=== PATIENT | female | born 1975 | race Caucasian/White ===

== ENCOUNTER → 2021-12-30 08:40 | Outpatient (BNVA) | payer OTHER, SELFPAY | PROVIDERS: PCP Physician Assistant; Visit Provider Student in an Organized Health Care Education/Training Program | DX: I73.00 Raynaud's syndrome without gangrene (principal); M54.2 Cervicalgia; Z13.21 Encounter for screening for nutritional disorder | CPT/HCPCS: 36415; 80053; 81001; 82306; 82550; 82784; 84156; 84165; 84443; 85025; 85597; 85613; 85652; 85730; 86038; 86039; 86140; 86146; 86147; 86160; 86225; 86235; 86334; 86376; 86800; 99202 ==

== ENCOUNTER 2021-12-30 10:06 | Outpatient (REF) | payer OTHER, SELFPAY ==
[2021-12-30 10:43] LABS: MANUAL DIFF FLAG NO
[2021-12-30 11:45] LABS: Basophils Absolute Auto 0.1 X10*3/uL (0.0-0.2); Basophils Percent Auto 0.6 % (0-2); Eosinophils Absolute Auto 0.1 X10*3/uL (0.0-0.4); Eosinophils Percent Auto 0.8 % (0-4); Hematocrit 42.1 % (37.0-47.0); Hemoglobin 13.9 g/dl (12.0-16.0); Imm Gran Abs Auto 0.04 X10*3/uL (0.00-0.03); Imm Gran Pct Auto 0.5 % (0.0-0.4); Lymphocytes Absolute Auto 2.1 X10*3/uL (1.2-4.9); Lymphocytes Percent Auto 24.6 % (20-40); Mean Corpuscular Hemoglobin 29.4 pg (27.0-33.0); Mean Corpuscular Volume 89.2 fL (80.0-98.0); Mean Platelet Volume 10.3 fL (9.4-12.3); Monocytes Absolute Auto 0.6 X10*3/uL (0.1-1.2); Monocytes Percent Auto 7.3 % (2-11); Neutrophils Absolute Auto 5.6 x10*3/uL (2.0-8.3); Neutrophils Percent Auto 66.2 % (45-73); Platelet Count 313 X10*3/uL (160-400); Red Blood Count 4.72 X10*6/uL (4.20-5.50); Red Cell Distribution Width 11.9 % (11.0-16.0); White Blood Count 8.4 X10*3/uL (4.8-10.8)
[2021-12-30 12:11] LABS: Alanine Aminotransferase 7 U/L (0-31); Albumin Level 4.9 g/dL (3.5-5.0); Alkaline Phosphatase 59 U/L (39-117); Anion Gap 16 (12-20); Aspartate Amino Transferase 19 U/L (5-31); Bilirubin Total 0.3 mg/dL (0.0-1.0); Blood Urea Nitrogen 9 mg/dL (9-16); C Reactive Protein 0.43 mg/dL (< or = 0.50); Calcium 10.1 mg/dL (8.4-10.2); Carbon Dioxide 23 mmol/L (22-29); Chloride 102 mmol/L (96-108); Estimated Glomerular Filt Rate > 60; Glucose Random 87 mg/dL (60-115); Potassium 4.3 mmol/L (3.3-5.1); Sodium 137 mmol/L (135-145)
[2021-12-30 12:20] LABS: Erythrocyte Sedimentation Rate 18 MM/HR (0-20)
[2021-12-30 12:33] LABS: Appearance Urine Clear; Color Urine Yellow; Glucose Urine UA Negative (Negative); Leukocyte Esterase Urine Negative (Negative); Nitrite Urine Negative (Negative); Urine Blood Negative (Negative); Urine Ketones Negative (Negative); Urine Protein Negative (Neg-Trace)
[2021-12-30 12:39] LABS: Thyroid Stimulating Hormone 1.05 uIU/mL (0.32-4.0)
[2021-12-30 12:39] LABS: Creatinine Urine 27.01 mg/dL; Total Protein Urine Random < 7 mg/dL (<12)
[2021-12-30 12:40] LABS: Bacteria Urine None Seen (None Seen); Hyaline Casts Urine 0-2 /LPF (0-2); RBC Urine 0-2 /HPF (0-2); WBC Urine 0-5 /HPF (0-5)
[2021-12-31 13:52] LABS: Cardiolipin IgG Ab 2.8 GPL-U/mL; Cardiolipin IgM Ab 2.5 MPL-U/mL
[2021-12-31 21:41] LABS: Prot Elec - Albumin 4.7 g/dL (3.8-4.8); Prot Elec - Alpha1 0.4 g/dL (0.2-0.3); Prot Elec - Alpha2 0.9 g/dL (0.5-0.9); Prot Elec - Beta 1 0.5 g/dL (0.4-0.6); Prot Elec - Beta 2 0.4 g/dL (0.2-0.5); Prot Elec - Gamma 1.2 g/dL (0.8-1.7)
[2022-01-01 11:42] LABS: IgA 258 mg/dL (47-310); IgG 1122 mg/dL (600-1640); IgM 148 mg/dL (50-300)
[2022-01-01 15:16] LABS: Anti Nuclear Antibody Screen NEGATIVE (NEGATIVE)
[2022-01-01 16:47] LABS: Complement C3 155 mg/dL (83-193)
[2022-01-01 17:51] LABS: Thyroid Peroxidase Antibodies 1 IU/mL (<9)
[2022-01-01 22:02] LABS: Anti-Centromere B Antibodies <1.0 NEG AI (<1.0 NEG)
[2022-01-02 05:41] LABS: Beta-2 Glycoprotein IgA <2.0 U/mL (<20.0); Beta-2 Glycoprotein IgG <2.0 U/mL (<20.0); Beta-2 Glycoprotein IgM 2.6 U/mL (<20.0)
[2022-01-02 08:23] LABS: Anti DNA DS Antibody 2 IU/mL; Antibody to SS-A Antigen <1.0 NEG AI (<1.0 NEG); Antibody to SS-B Antigen <1.0 NEG AI (<1.0 NEG); SM/Ribonucleoprotein Ab <1.0 NEG AI (<1.0 NEG); Scleroderma 70 Antibody <1.0 NEG AI (<1.0 NEG); Smith Protein <1.0 NEG AI (<1.0 NEG)
[2022-01-02 21:22] LABS: Thyroglobulin Antibodies <1 IU/mL (< or = 1)
[2022-01-03 13:52] LABS: PTT (LAC) Screen 38 sec (<=40)
[2022-01-03 15:16] LABS: Vitamin D 25-OH, D2 <4 ng/mL; Vitamin D 25-OH, D3 33 ng/mL; Vitamin D 25-OH, Total 33 ng/mL (30-100)
== END 2021-12-30 10:07 | disposition home or self-care (01) ==
LOC: HO.10HDL 10:06
PROVIDERS: Visit Provider Student in an Organized Health Care Education/Training Program
DX: Z13.89 Encounter for screening for other disorder (principal)
CPT/HCPCS: 36415; 80053; 81001; 82306; 82550; 82784; 84156; 84165; 84443; 85025; 85597; 85613; 85652; 85730; 86038; 86039; 86140; 86146; 86147; 86160; 86225; 86235; 86334; 86376; 86800

== ENCOUNTER → 2022-02-04 09:37 | Outpatient (BNVA) | payer OTHER, SELFPAY | PROVIDERS: PCP Physician Assistant; Visit Provider Student in an Organized Health Care Education/Training Program | DX: I73.00 Raynaud's syndrome without gangrene (principal); M54.2 Cervicalgia | CPT/HCPCS: 99212 ==

== ENCOUNTER 2023-02-03 09:11 | Outpatient (AMB) | payer OTHER, SELFPAY ==
--- NOTE | 2023-02-03 09:17 | MHC.OFFVIS ---
Intake Vital Signs 02/03/23 09:20 Height 5 ft 2 in Weight 139 lb 5.314 oz BMI 25.5 BP 116/68 Blood Pressure Location Rt brachial Position Sitting Pulse 96 Pulse Source Pulse Oximeter Temp 97.7 F Pulse Oximetry (%) 98 Intake Visit Reasons: Raynaud's Intake Note: Pt last seen 02/04/22, presents today for 1 year cervicalgia follow up. 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 Accompanied by: Self / Same As Patient Allergies acetaminophen [From Percocet] Allergy (Intermediate, Verified 02/03/23 09:22) Rash oxycodone [From Percocet] Allergy (Intermediate, Verified 02/03/23 09:22) Rash Medication List - Last Reconciled 02/03/23 by Nelson Villalta MD albuterol sulfate 90 mcg/actuation (ProAir HFA) 2 puffs inhalation Q6H PRN cholecalciferol (vitamin D3) 25 mcg PO DAILY clindamycin phosphate 1% 1 appl topical DAILY fluticasone propionate 50 mcg/actuation (Allergy Relief (fluticasone)) 1 spray intranasal DAILY PRN ibuprofen 400 mg PO Q8H PRN HPI HPI Comments History of Present Illness Details 47-year-old female with Raynaud's returns for follow-up. States that the Raynaud's does not bother her. She states that she feels a little bit more stiff compared to last visit. She did not go to physical therapy. States that her neck and back are stiff. Initial history: This is a 46-year-old female with past medical history of diverticulosis, allergic rhinitis, asthma who presents for evaluation of upper neck and back pain. The condition has been ongoing for more than 5 years but she decided to get evaluated for it. She has bilateral neck and upper back pain, usually associated with stiffness, no significant pain. She gets about 10% relief with ibuprofen 400 mg. Which she uses about once a week. Pain is usually worse when she wakes up in the morning. Patient states she generally sleeps well, 7 hours nightly, wakes up refreshed. No other pain. Over the last 5 years she has had her fingers become pale in the cold. This is associated with mild tingling. Currently when she has to reach into the freezer she wears gloves. Her fingers do not change to blue or purple. Never had any ulcers on the fingertips. Fingers feel normal after just a few minutes.she had tingling and pain in her toes for a few days at some point then it self-resolved. She mentions that her father and sister both have goiter but they are not on any treatment for thyroid disease. The family has been in the [place] for over 40 years. Patient denies , photosensitivity, oral or nasal ulcers, sicca symptoms, fevers, alopecia, history of miscarriage. [facility] Medical History Diverticulosis Endometriosis Asthma Allergic rhinitis Family History Mother CHF (congestive heart failure) Father Hypertension Sister Goiter Social History Household Members: Spouse and Family Housing: House Alcohol intake: current Alcohol intake frequency: a few times a week Alcohol type: wine Patient Tobacco Use Status: Never used Tobacco service: No Current occupational status: employed Current occupation: [employer] 2 times a week, also self employed [employer] Review of Systems Const All systems reviewed & are unremarkable except as noted in HPI and below Resp Reports no additional complaints Musc Details: Upper back and neck stiffness Physical Exam Vital Signs: Last Vital Signs Temp 97.7 F 02/03/23 09:20 Pulse 96 02/03/23 09:20 BP 116/68 02/03/23 09:20 Pulse Ox 98 02/03/23 09:20 BMI result Body Mass Index 25.5 Const General: cooperative, healthy appearing, comfortable, no acute distress and well developed Nutritional Appearance: average body habitus and well nourished Orientation/consciousness: patient oriented x3 Limitations: no limitations HEENT Head: Yes normocephalic and Yes atraumatic Mouth: moist mucous membranes Resp Effort & Inspection: normal respiratory effort and able to speak in complete sentences Auscultation: clear to auscultation bilaterally Cardio Rate: regular rate Rhythm: regular rhythm Heart sounds: S1 normal heart sound present and S2 normal heart sound present GI Inspection: No distended Palpation (GI): Soft to palpation and nontender Back/Spine/Pelvis Cervical Spine: cervical ROM normal Skin General skin exam: no rashes or lesions noted Neuro General: patient oriented x3 Extrem Other: No synovitis Normal nailfold capillaroscopy Muscle strength 5/5 proximally in upper lower extremities No fibromyalgia tender points Mildly reduced neck rotation to the left Negative Spurling sign bilaterally General: Yes full ROM Assessment & Plan Assessment & Plan (1) Raynaud phenomenon: Code(s): I73.00 - Raynaud's syndrome without gangrene Qualifiers: Raynaud?s-associated gangrene presence: without gangrene Qualified Code(s): I73.00 - Raynaud's syndrome without gangrene Plan: This is a 47-year-old female with Raynaud's returns for follow-up. Per patient her Raynaud's has not been bothersome recently. She has negative serologies and normal nailfold capillaroscopy. This is likely primary Raynaud's Advised patient on the importance of maintaining core and extremity temperature warmth. We discussed gloves and glove warmers as needed. She is a nonsmoker f/u in 1 year (2) Cervicalgia: Code(s): M54.2 - Cervicalgia Plan: Likely mechanical in nature. Possible OA. There are no radiculopathy signs. Start PT Plan I spent 25 minutes reviewing patient's chart, evaluating patient, ordering diagnostic workup, counseling patient and documenting in the chart Orders: Orders PT Evaluation and Treatment Today M54.2 - Cervicalgia Coding Level of Care Code Est Pt Level 4 (99315) Diagnoses Raynaud's phenomenon without gangrene I73.00 Raynaud?s-associated gangrene presence: without gangrene Cervicalgia M54.2
[2023-02-03 09:20] VITALS: BP 116/68; PULSE 96; TEMP 36.5; O2SAT 98; BMI 25.5
== END 2023-02-03 09:51 | disposition home or self-care (01) ==
PROVIDERS: PCP Physician Assistant; Visit Provider Student in an Organized Health Care Education/Training Program
DX: I73.00 Raynaud's syndrome without gangrene (principal); M54.2 Cervicalgia
CPT/HCPCS: 99214

== ENCOUNTER → 2023-02-03 09:11 | Outpatient (BNVA) | payer OTHER, SELFPAY | PROVIDERS: Visit Provider Student in an Organized Health Care Education/Training Program | DX: I73.00 Raynaud's syndrome without gangrene (principal); M54.2 Cervicalgia | CPT/HCPCS: 99212 ==